=== PATIENT | female | born 1990 | race African-American/Black ===

== ENCOUNTER 2024-03-18 09:06 | Emergency (ER) | payer OTHER ==
[~2024-03-18] VITALS: Ht 162.6 cm; Wt 120.5 kg
[2024-03-18 09:12] VITALS: TEMP 98.5
[2024-03-18] MEDS: DiphenhydrAMINE HCL 50 MG/ML VIAL IVP ONE (09:45)
[2024-03-18] MEDS: FAMOTIDINE 20 MG/2 ML VIAL IVP ONE (09:46)
[2024-03-18 09:57] LABS: BASOPHILS % (AUTO) 0.8 % (0.0-2.0); EOSINOPHILS % (AUTO) 2.7 % (1.0-6.0); HEMATOCRIT 36.5 % (36-46); HEMOGLOBIN 11.4 g/dL (12.0-16.0); LYMPHOCYTES # (AUTO) 1.2 K/uL (1.0-4.8); LYMPHOCYTES % (AUTO) 21.5 % (22.0-44.0); MEAN CORPUSCULAR HEMOGLOBIN 22.9 pg (26.0-34.0); MEAN CORPUSCULAR HGB CONC 31.3 G/dL (31.0-37.0); MEAN CORPUSCULAR VOLUME 73 fL (80-100); MONOCYTES # (AUTO) 0.4 K/uL (0.1-1.0); MONOCYTES % (AUTO) 7.5 % (2.0-9.0); NEUTROPHILS # (AUTO) 3.7 K/uL (1.8-7.7); NEUTROPHILS % (AUTO) 67.5 % (40.0-70.0); PLATELET COUNT (AUTO) 318 K/uL (150-450); RED BLOOD CELL COUNT(AUTO) 4.98 MIL/uL (4.00-5.20); RED CELL DISTRIBUTION WIDTH 14.4 % (11.5-14.5); WHITE BLOOD COUNT (AUTO) 5.5 K/uL (4.5-11.0)
[2024-03-18] MEDS: SODIUM CHLORIDE 0.9% 1,000 ML IV ONE (10:00)
[2024-03-18] MEDS: MethylPREDNISolone SOD SUCC 125 MG/2 ML VIAL IVP ONE (10:00)
[2024-03-18 10:16] LABS: CALCIUM, TOTAL 8.1 mg/dL (8.8-10.5); CREATININE 1.09 mg/dL (0.60-1.30); POTASSIUM 3.8 mmol/L (3.5-5.1)
[2024-03-18] MEDS: EPINEPHrine 1:1,000 [1 MG/ML] VIAL IM ONE (10:20)
[2024-03-18 11:20] LABS: RBC MORPHOLOGY COMMENT ABNORMAL RBC MORPH
[2024-03-18 12:32] VITALS: BP 130/74; PULSE 81; RESP 18; O2SAT 98
[2024-03-18] MEDS ORDERED: PRED-554 PO (13:25)
[2024-03-18] MEDS ORDERED: EPIN0.3P3 IM (13:25)
[2024-03-18] MEDS ORDERED: DIPH-1243 PO (13:25)
== END 2024-03-18 15:59 | disposition home or self-care (01) ==
LOC: EMS 09:06
DX: T78.09XA Anaphylactic reaction due to other food products, initial encounter (principal); Z90.49 Acquired absence of other specified parts of digestive tract; Z88.8 Allergy status to other drugs, medicaments and biological substances
CPT/HCPCS: 99291; 96374; 96375; 96361; 80048; 84703; 85025; 36415; 96372; J1200; J0171; J3490; J2919; J7030

== ENCOUNTER 2025-06-15 13:01 | Emergency (ER) | payer OTHER ==
[~2025-06-15] VITALS: Ht 162.6 cm; Wt 130.4 kg
[~2025-06-15 13:01] MED LIST: DIPH-901 PO; EPIN0.3P3 IM; PRED-554 PO
[2025-06-15 13:10] VITALS: BP 139/95; PULSE 81; RESP 18; TEMP 98; O2SAT 99
[2025-06-15] MEDS ORDERED: HYDR30CR3 TP (14:08)
[2025-06-15] MEDS ORDERED: ACET-66 PO (14:08)
[2025-06-15] MEDS ORDERED: DIPH50CA37 PO (14:08)
== END 2025-06-15 14:46 | disposition home or self-care (01) ==
LOC: EMS 13:01
DX: T78.04XA Anaphylactic reaction due to fruits and vegetables, initial encounter (principal); T78.079 Anaphylactic reaction due to milk and dairy products, unspecified; J30.2 Other seasonal allergic rhinitis; G43.909 Migraine, unspecified, not intractable, without status migrainosus; Z98.890 Other specified postprocedural states; Z90.49 Acquired absence of other specified parts of digestive tract; Z79.52 Long term (current) use of systemic steroids; X58.XXXA Exposure to other specified factors, initial encounter
CPT/HCPCS: 99283; Z7502